=== PATIENT | female | born 1975 | race African-American/Black ===

== ENCOUNTER 2017-02-05 03:27 | Emergency (ER) | payer OTHER ==
[~2017-02-05] VITALS: Ht 162.6 cm; Wt 70.3 kg
[2017-02-05 03:30] VITALS: BP_SYST 154
[2017-02-05] MEDS ORDERED: NACL 0.9% 1,000 ML IV ONE (04:30)
[2017-02-05 04:41] LABS: CALCIUM 8.6 mg/dL (8.4-11.0); CREATININE 0.57 mg/dL (0.55-1.30); POTASSIUM 3.9 mmol/L (3.5-5.1)
[2017-02-05 04:46] LABS: ALBUMIN 3.2 g/dL (3.4-4.8); TOTAL BILIRUBIN 0.2 mg/dL (0.0-1.0); TOTAL PROTEIN, SERUM 7.4 g/dL (6.4-8.3)
[2017-02-05 05:02] LABS: BASOPHILS # (AUTO) 0.1 K/uL (0.0-0.2); BASOPHILS % (AUTO) 0.8 % (0.0-2.0); EOSINOPHILS # (AUTO) 0.9 K/uL (0.0-0.4); EOSINOPHILS % (AUTO) 12.6 % (0.0-4.0); HEMATOCRIT 34.8 % (36-48); HEMOGLOBIN 11.6 g/dL (12.0-16.0); LYMPHOCYTES # (AUTO) 1.8 K/uL (1.0-5.5); MEAN CORPUSCULAR HEMOGLOBIN 29 pg (27-31); MEAN CORPUSCULAR HGB CONC 33 % (32-36); MEAN CORPUSCULAR VOLUME 86 fL (79.0-98.0); MONOCYTES # (AUTO) 0.5 K/uL (0.0-1.0); MONOCYTES % (AUTO) 6.6 % (1.7-9.3); NEUTROPHILS # (AUTO) 3.7 K/uL (1.8-7.7); PLATELET COUNT (AUTO) 207 K/uL (130-430); RED BLOOD CELL COUNT(AUTO) 4.07 MIL/uL (4.2-6.2); RED CELL DISTRIBUTION WIDTH 12.3 % (9.0-15.0)
[2017-02-05 05:10] LABS: INR 0.9 (0.8-1.2); PROTHROMBIN TIME 10.3 SECS (9.5-12.5)
[2017-02-05 06:00] VITALS: BP_SYST 128
== END 2017-02-05 06:00 | disposition home or self-care (01) ==
LOC: SED 03:27
DX: R07.89 Other chest pain (principal); E11.9 Type 2 diabetes mellitus without complications
CPT/HCPCS: 36415; 71010; 80053; 84484; 85025; 85610; 85730; 93005; 96360; 99285; J7030